=== PATIENT | female | born 1975 | race Native Hawaiian/Other Pacific Islander ===

== ENCOUNTER 2019-10-19 16:47 | Emergency (ER) | payer BC ==
[~2019-10-19] VITALS: Ht 170.2 cm; Wt 158.8 kg
[2019-10-19 17:02] VITALS: TEMP 97.7
[2019-10-19 18:25] VITALS: BP 161/90
== END 2019-10-19 18:25 | disposition home or self-care (01) ==
LOC: ED 16:47
PROC: 2W3MX1Z Immobilization of Left Lower Extremity using Splint (ICD-10-PCS; principal; 2019-10-19)
DX: S86.812A Strain of other muscle(s) and tendon(s) at lower leg level, left leg, initial encounter (principal); X50.1XXA Overexertion from prolonged static or awkward postures, initial encounter; Y92.89 Other specified places as the place of occurrence of the external cause
CPT/HCPCS: 96372; 99283; J1885